=== PATIENT | female | born 1950 | race Caucasian/White ===

== ENCOUNTER 2019-03-01 12:13 | Emergency (ER) | payer MEDICARE, OTHER | END 2019-03-01 13:30 | disposition home or self-care (01) | LOC: JERFT 12:13 ==

== ENCOUNTER 2023-02-22 14:28 | Emergency (ER) | payer OTHER ==
[2023-02-22 14:41] VITALS: TEMP 97.9; BMI 28.7
[2023-02-22] MEDS ORDERED: MECLIZINE HCL 25 MG TABLET (FP) PO ONE (14:58)
[2023-02-22] MEDS ORDERED: MECLIZINE HCL 25 MG TABLET (FP) ONE (15:39)
[2023-02-22 16:23] LABS: HEMATOCRIT 40.6 % (32.4-45.2); HEMOGLOBIN 13.4 G/dL (10.7-15.3); MCH 30.7 pg (25.7-33.7); MEAN CELL VOLUME 92.9 fl (80-96); MEAN PLT VOLUME 9.4 fl (7.5-11.1); PLATELET COUNT 164.1 10^3/uL (134-434); RBC 4.37 10^6/uL (3.60-5.2); RDW 13.7 % (11.6-15.6); WHITE BLOOD COUNT 7.5 10^3/uL (4.0-10.8)
[2023-02-22 16:47] LABS: ALBUMIN 4.1 g/dl (3.4-5.0); BLOOD UREA NITROGEN 18.4 mg/dl (7-18); CALCIUM 9.1 mg/dl (8.5-10.1); CREATININE 0.7 mg/dl (0.6-1.3); POTASSIUM 4.2 mmol/L (3.5-5.1); SGPT/ALT 14.1 U/L (7-52); TOT PROT 6.6 g/dl (6.4-8.2)
[2023-02-22 17:45] LABS: URINE APPEARANCE CLEAR; URINE BILIRUBIN NEGATIVE (NEGATIVE); URINE COLOR YELLOW; URINE GLUCOSE (UA) NEGATIVE (NEGATIVE); URINE KETONE NEGATIVE (NEGATIVE); URINE LEUK ESTERASE NEGATIVE (NEGATIVE); URINE NITRITE NEGATIVE (NEGATIVE); URINE PROTEIN NEGATIVE (NEGATIVE); URINE UROBILINOGEN 0.2 (0.2-1.0)
[2023-02-22 17:46] LABS: URINE BACTERIA FEW /hpf (NEGATIVE); URINE WBC 0-2 (NEGATIVE)
[2023-02-22 17:54] LABS: PLATELET ESTIMATE ADEQUATE
[2023-02-22 18:20] VITALS: BP 121/65; PULSE 64; RESP 14
[2023-02-22 18:45] LABS: BILIRUBIN,TOTAL 0.4 mg/dL (0.2-1)
== END 2023-02-22 17:55 | disposition left against medical advice (07) ==
LOC: FER 14:28
DX: R42 Dizziness and giddiness (principal); R11.0 Nausea; Z20.822 Contact with and (suspected) exposure to COVID-19
CPT/HCPCS: 0241U-QW; 36415; 70450-TC; 71045-TC-FY; 80053; 81003; 81015; 84484; 85027; 93005; 99285-25

== ENCOUNTER 2023-09-19 04:19 | Day surgery (SDC) | payer OTHER ==
[2023-09-13 14:03] VITALS: BMI 33.6
[2023-09-19 09:29] VITALS: TEMP 98.7
[2023-09-19 09:53] VITALS: RESP 18
[2023-09-19 10:11] VITALS: BP 137/86; PULSE 51
== END 2023-09-19 10:28 | disposition home or self-care (01) ==
LOC: JASU-ENDO 04:19
PROVIDERS: ATTEND Internal Medicine Gastroenterology
PROC: 0DB78ZX Excision of Stomach, Pylorus, Via Natural or Artificial Opening Endoscopic, Diagnostic (ICD-10-PCS; 2023-09-19)
PROC: 0DB68ZX Excision of Stomach, Via Natural or Artificial Opening Endoscopic, Diagnostic (ICD-10-PCS; 2023-09-19)
PROC: 0DB48ZX Excision of Esophagogastric Junction, Via Natural or Artificial Opening Endoscopic, Diagnostic (ICD-10-PCS; 2023-09-19)
PROC: 0DB98ZX Excision of Duodenum, Via Natural or Artificial Opening Endoscopic, Diagnostic (ICD-10-PCS; principal; 2023-09-19 08:00)
DX: K29.80 Duodenitis without bleeding (principal); K29.50 Unspecified chronic gastritis without bleeding
CPT/HCPCS: 82962; 88305-TC; 88342-TC

== ENCOUNTER 2023-10-17 04:29 | Day surgery (SDC) | payer OTHER ==
[2023-10-16 11:30] VITALS: BMI 29.2
[2023-10-17 11:24] VITALS: TEMP 98.1
[2023-10-17 13:10] VITALS: BP 125/64; PULSE 52; RESP 19
== END 2023-10-17 13:28 | disposition home or self-care (01) ==
LOC: JASU-ENDO 04:29
PROVIDERS: ATTEND Internal Medicine Gastroenterology
PROC: 0DJD8ZZ Inspection of Lower Intestinal Tract, Via Natural or Artificial Opening Endoscopic (ICD-10-PCS; principal; 2023-10-17 11:45)
DX: Z12.11 Encounter for screening for malignant neoplasm of colon (principal); K64.8 Other hemorrhoids; K57.30 Diverticulosis of large intestine without perforation or abscess without bleeding; I10 Essential (primary) hypertension; E11.9 Type 2 diabetes mellitus without complications; Z79.84 Long term (current) use of oral hypoglycemic drugs
CPT/HCPCS: 82962

== ENCOUNTER 2023-10-30 04:01 | Day surgery (SDC) | payer OTHER ==
[2023-10-24 18:03] VITALS: BMI 28.3
[2023-10-30] MEDS ORDERED: FENTANYL CITRATE/PF 50 MCG/ML VIAL ONE ×6 (10:04→14:26)
[2023-10-30] MEDS ORDERED: MIDAZOLAM HCL 2 MG/2 ML SINGLE DOSE VIAL ONE (10:04)
[2023-10-30] MEDS ORDERED: LIDOCAINE HCL/PF 2% SDV 5ML VIAL ONE (10:10)
[2023-10-30] MEDS ORDERED: ROCURONIUM BROMIDE 50 MG/5 ML SYRINGE ONE ×2 (10:11→12:10)
[2023-10-30] MEDS ORDERED: ceFAZolin SODIUM 1 GM VIAL ONE (10:35)
[2023-10-30] MEDS: ceFAZolin SODIUM 1 GM VIAL IVPB ONE (10:36)
[2023-10-30] MEDS ORDERED: ONDANSETRON 4 MG/2 ML VIAL ONE (10:38)
[2023-10-30] MEDS ORDERED: DEXAMETHASONE SOD PHOSPHATE 4 MG/1 ML VIAL ONE (10:38)
[2023-10-30] MEDS ORDERED: SUGAMMADEX SODIUM 200 MG/2 ML VIAL ONE (12:49)
[2023-10-30] MEDS: ONDANSETRON 4 MG/2 ML VIAL IVPUSH ONE (13:23)
[2023-10-30] MEDS ORDERED: IBUPROFEN 400 MG TABLET (FP) PO PRN (14:03)
[2023-10-30] MEDS: HYDROmorphone HCl 2 MG/ML VIAL IVPUSH ONE ×2 (14:40→16:57)
[2023-10-30] MEDS: IBUPROFEN 800 MG/8 ML IJ IVPB PRN (17:17)
[2023-10-30] MEDS: ONDANSETRON 4 MG/2 ML VIAL IVPUSH PRN (17:17)
[2023-10-30] MEDS: LACTATED RINGERS SOLUTION 1,000 ML IV SCH (18:22)
[2023-10-30] MEDS: DONEPEZIL HCL 10 MG TABLET (FP) PO SCH (21:34)
[2023-10-30] MEDS: ATORVASTATIN CA 40 MG TABLET (FP) PO SCH (21:34)
[2023-10-30] MEDS: NITROFURANTOIN MONOHYD/M-CRYST 100 MG CAPSULE PO SCH (21:34)
[2023-10-31] MEDS: ACETAMINOPHEN 325 MG TABLET (FP) PO PRN (05:06)
[2023-10-31 08:32] LABS: BASO % 0.1 % (0-2.0); EOS % 0.2 % (0-4.5); HEMATOCRIT 31.1 % (32.4-45.2); HEMOGLOBIN 10.7 GM/dL (10.7-15.3); LYMPH % 8.2 % (8-40); MCH 30.1 pg (25.7-33.7); MCHC 34.4 g/dl (32.0-36.0); MEAN CELL VOLUME 87.7 fl (80-96); MEAN PLT VOLUME 8.6 fl (7.5-11.1); NEUT % 83.5 % (42.8-82.8); PLATELET COUNT 213 10^3/uL (134-434); RBC 3.55 M/mm3 (3.60-5.2); WHITE BLOOD COUNT 15.4 K/mm3 (4.0-10.0)
[2023-10-31 09:08] LABS: CALCIUM 8.2 mg/dL (8.5-10.1)
[2023-10-31 09:09] LABS: BLOOD UREA NITROGEN 8.8 mg/dL (7-18)
[2023-10-31 09:12] LABS: CREATININE 0.6 mg/dL (0.55-1.3)
[2023-10-31] MEDS: LISINOPRIL 5 MG TABLET PO SCH (10:07)
[2023-10-31] MEDS: metoPROLOL SUCCINATE 25 MG TAB.SR.24H (FP) PO SCH (10:07)
[2023-10-31] MEDS: RANOLAZINE E.R. 500 MG TABLET (FP) PO SCH (10:07)
[2023-10-31 13:27] VITALS: BP 114/52; PULSE 63; RESP 18; TEMP 97.3
== END 2023-10-31 16:23 | disposition home or self-care (01) ==
LOC: JASU-SURG 04:01 → JASUSAT 04:01 → J8W 16:36 → JASUSAT 10-31 16:23
PROVIDERS: ATTEND Obstetrics & Gynecology
PROC: 0JQC0ZZ Repair Pelvic Region Subcutaneous Tissue and Fascia, Open Approach (ICD-10-PCS; 2023-10-30)
PROC: 0UT77ZZ Resection of Bilateral Fallopian Tubes, Via Natural or Artificial Opening (ICD-10-PCS; 2023-10-30)
PROC: 0UT27ZZ Resection of Bilateral Ovaries, Via Natural or Artificial Opening (ICD-10-PCS; 2023-10-30)
PROC: 0UT97ZZ Resection of Uterus, Via Natural or Artificial Opening (ICD-10-PCS; principal; 2023-10-30 10:00)
DX: N81.3 Complete uterovaginal prolapse (principal)
CPT/HCPCS: 36415; 80048; 82962; 85025; 86850; 86900; 86901; 88305-TC; 88309-TC; 94760

== ENCOUNTER 2024-08-06 17:44 | Emergency (ER) | payer OTHER ==
[2024-08-06 18:15] VITALS: BP 120/42; PULSE 65; RESP 18; TEMP 98.2; BMI 31.6
[2024-08-06] MEDS ORDERED: ENOXAPARIN NA (PORCINE) 60 MG/0.6 ML DISP.SYRIN SQ ONE (20:33)
[2024-08-06] MEDS: ENOXAPARIN NA (PORCINE) 60 MG/0.6 ML DISP.SYRIN SQ SCH (20:42)
== END 2024-08-06 20:57 | disposition home or self-care (01) ==
LOC: FER 17:44
PROC: 3E013GC Introduction of Other Therapeutic Substance into Subcutaneous Tissue, Percutaneous Approach (ICD-10-PCS; principal; 2024-08-06)
DX: I82.412 Acute embolism and thrombosis of left femoral vein (principal); R60.0 Localized edema
CPT/HCPCS: 93971-TC; 96372; 99285-25